=== PATIENT | male | born 1955 | race Caucasian/White ===

== ENCOUNTER 2025-01-22 12:23 | Inpatient (IN) | payer MEDICARE ==
[2025-01-22 14:24] LABS: #Basophils Less than 0.03 10x3/uL (0.0-0.2); #Eosinophils Less than 0.03 10x3/uL (0.0-0.5); #Monocytes 0.66 10x3/uL (0.0-1.1); #Neutrophils 7.12 10x3/uL (1.5-8.4); %Basophils 0.2 % (0.0-2.0); %Eosinophils 0.2 % (0.0-6.0); %Lymphocytes 22.9 % (18.0-47.0); %Monocytes 6.5 % (0.0-10.0); %Neutrophils 70.0 % (40.0-75.0); Hematocrit 42.5 % (38.8-50.0); Hemoglobin 14.3 g/dL (13.5-17.5); Mean Corpuscular Hemoglobin 32.3 pg (27.0-33.0); Mean Corpuscular Volume 95.9 fL (81.2-95.1); Platelet Count 258 10x3/uL (150-450); Red Blood Cell (RBC) Count 4.43 10x6/uL (4.32-5.72); White Blood Cell (WBC) Count 10.17 10x3/uL (3.5-10.5)
[2025-01-22 14:39] LABS: INR-International Normal Ratio 1.0; PTT 24.5 sec (22.0-33.0); Prothrombin Time 10.6 sec (9.5-12.1)
[2025-01-22 14:43] LABS: ALT (SGPT) 14 U/L (Less than 45); AST (SGOT) 21 U/L (11-34); Albumin 4.4 g/dL (3.1-4.5); Alkaline Phosphatase 93 U/L (40-110); Anion Gap 13 mmol/L (10-20); BUN (Urea Nitrogen) 46 mg/dL (8.4-25.7); Bilirubin, Total 0.4 mg/dL (0.3-1.2); Calc. Creatinine Clearance 0 mL/min (70-130); Calcium 8.8 mg/dL (7.8-10.44); Carbon Dioxide 28 mmol/L (23-31); Chloride 102 mmol/L (98-107); Globulin 3.6 g/dL (2.4-3.5); Glucose 88 mg/dL (80-115); Lipase 48 U/L (8-78); Potassium 4.3 mmol/L (3.5-5.1); Sodium 139 mmol/L (136-145)
[2025-01-22 14:46] LABS: Troponin I 0.021 ng/mL (< 0.028)
[2025-01-22 14:58] LABS: Glucose, Urine (Dipstick) Normal (Negative); Leukocyte Negative (Negative); Protein, Urine (Dipstick) 30 mg/dl (Neg-Trace); Specific Gravity, Urine 1.025 (1.005-1.030)
[2025-01-22 15:29] LABS: Bacteria/HPF None Seen HPF (None Seen); CAUTI Indications for Culture Alt mental st,lethar; RBC/HPF 0-3 HPF (0-3); Urine Culture Reflex No No; WBC/HPF 0-3 HPF (0-3)
[2025-01-22] MEDS ORDERED: Ondansetron PF 4 MG/2 ML Vial IVP PRN (17:16)
[2025-01-22] MEDS ORDERED: Senokot S 8.6-50 MG TAB PO PRN (17:28)
[2025-01-22] MEDS ORDERED: Melatonin 3 MG TAB PO PRN (17:28)
[2025-01-22 19:49] LABS: Osmolality, Serum 302 mOsm/kg (280-301)
[2025-01-22 20:02] LABS: Troponin I 0.021 ng/mL (< 0.028)
[2025-01-22 20:10] VITALS: BMI 26.6
[2025-01-22 22:01] LABS: Troponin I 0.019 ng/mL (< 0.028)
[2025-01-22 22:47] LABS: Osmolality, Urine 538 mOsm/kg (50-1200)
[2025-01-23 05:09] LABS: #Basophils 0.04 10x3/uL (0.0-0.2); #Eosinophils 0.13 10x3/uL (0.0-0.5); #Monocytes 0.50 10x3/uL (0.0-1.1); #Neutrophils 3.53 10x3/uL (1.5-8.4); %Basophils 0.6 % (0.0-2.0); %Eosinophils 1.9 % (0.0-6.0); %Lymphocytes 40.0 % (18.0-47.0); %Monocytes 7.1 % (0.0-10.0); %Neutrophils 50.3 % (40.0-75.0); Hematocrit 36.9 % (38.8-50.0); Hemoglobin 12.4 g/dL (13.5-17.5); Mean Corpuscular Hemoglobin 32.1 pg (27.0-33.0); Mean Corpuscular Volume 95.6 fL (81.2-95.1); Platelet Count 235 10x3/uL (150-450); Red Blood Cell (RBC) Count 3.86 10x6/uL (4.32-5.72); White Blood Cell (WBC) Count 7.02 10x3/uL (3.5-10.5)
[2025-01-23 05:25] LABS: Anion Gap 13 mmol/L (10-20); BUN (Urea Nitrogen) 35 mg/dL (8.4-25.7); Calc. Creatinine Clearance 52 mL/min (70-130); Calcium 7.5 mg/dL (7.8-10.44); Carbon Dioxide 23 mmol/L (23-31); Chloride 110 mmol/L (98-107); Glucose 124 mg/dL (80-115); Potassium 4.5 mmol/L (3.5-5.1); Sodium 141 mmol/L (136-145)
[2025-01-23] MEDS: Aspirin Chewable 81 MG TAB PO SCH (09:59)
[2025-01-23] MEDS: Pantoprazole 40 MG DR.TAB PO SCH (09:59)
[2025-01-24 05:23] LABS: #Basophils 0.03 10x3/uL (0.0-0.2); #Eosinophils 0.13 10x3/uL (0.0-0.5); #Monocytes 0.57 10x3/uL (0.0-1.1); #Neutrophils 4.13 10x3/uL (1.5-8.4); %Basophils 0.4 % (0.0-2.0); %Eosinophils 1.8 % (0.0-6.0); %Lymphocytes 34.4 % (18.0-47.0); %Monocytes 7.7 % (0.0-10.0); %Neutrophils 55.6 % (40.0-75.0); Hematocrit 35.6 % (38.8-50.0); Hemoglobin 11.9 g/dL (13.5-17.5); Mean Corpuscular Hemoglobin 32.2 pg (27.0-33.0); Mean Corpuscular Volume 96.2 fL (81.2-95.1); Platelet Count 210 10x3/uL (150-450); Red Blood Cell (RBC) Count 3.70 10x6/uL (4.32-5.72); White Blood Cell (WBC) Count 7.42 10x3/uL (3.5-10.5)
[2025-01-24 05:42] LABS: Anion Gap 11 mmol/L (10-20); BUN (Urea Nitrogen) 18 mg/dL (8.4-25.7); Calc. Creatinine Clearance 75 mL/min (70-130); Calcium 7.5 mg/dL (7.8-10.44); Carbon Dioxide 22 mmol/L (23-31); Chloride 113 mmol/L (98-107); Glucose 108 mg/dL (80-115); Potassium 4.8 mmol/L (3.5-5.1); Sodium 141 mmol/L (136-145)
[2025-01-24] MEDS: Acetaminophen 325 MG TAB PO PRN (08:45)
[2025-01-24] MEDS ORDERED: Iopamidol 370 76% 100 ML VIAL ONE (15:36)
[2025-01-24] MEDS: Lisinopril 20 MG TAB PO SCH (20:20)
[2025-01-25 05:40] LABS: #Basophils 0.04 10x3/uL (0.0-0.2); #Eosinophils 0.11 10x3/uL (0.0-0.5); #Monocytes 0.49 10x3/uL (0.0-1.1); #Neutrophils 3.93 10x3/uL (1.5-8.4); %Basophils 0.6 % (0.0-2.0); %Eosinophils 1.6 % (0.0-6.0); %Lymphocytes 35.0 % (18.0-47.0); %Monocytes 7.0 % (0.0-10.0); %Neutrophils 55.7 % (40.0-75.0); Hematocrit 35.0 % (38.8-50.0); Hemoglobin 12.0 g/dL (13.5-17.5); Mean Corpuscular Hemoglobin 32.0 pg (27.0-33.0); Mean Corpuscular Volume 93.3 fL (81.2-95.1); Platelet Count 226 10x3/uL (150-450); Red Blood Cell (RBC) Count 3.75 10x6/uL (4.32-5.72); White Blood Cell (WBC) Count 7.05 10x3/uL (3.5-10.5)
[2025-01-25 05:59] LABS: Anion Gap 10 mmol/L (10-20); BUN (Urea Nitrogen) 15 mg/dL (8.4-25.7); Calc. Creatinine Clearance 77 mL/min (70-130); Calcium 7.7 mg/dL (7.8-10.44); Carbon Dioxide 21 mmol/L (23-31); Chloride 112 mmol/L (98-107); Glucose 97 mg/dL (80-115); Potassium 4.5 mmol/L (3.5-5.1); Sodium 138 mmol/L (136-145)
[2025-01-25 12:31] LABS: Glucose, Urine (Dipstick) Negative (Negative); Leukocyte Negative (Negative); Protein, Urine (Dipstick) Negative (Neg-Trace); Specific Gravity, Urine Less/Equal 1.005 (1.005-1.030)
[2025-01-25 12:40] VITALS: BP 143/79; TEMP 97.1
[2025-01-25 12:56] LABS: RBC/HPF None Seen HPF (0-3)
[2025-01-25 12:57] LABS: Bacteria/HPF None Seen HPF (None Seen); CAUTI Indications for Culture Pelvic or flank pain; WBC/HPF None Seen HPF (0-3)
[2025-01-25 12:58] LABS: Urine Culture Reflex No No
== END 2025-01-25 13:04 | disposition home or self-care (01) | DRG 641 ==
LOC: CSHERS 12:23 → CSHERHOLD 16:04 → CSHTELE 19:48 → OBSVTOIN 01-23 13:47
PROVIDERS: ADMIT Internal Medicine; ATTEND Internal Medicine
DX: E86.0 Dehydration (principal); N17.9 Acute kidney failure, unspecified; I10 Essential (primary) hypertension; E78.5 Hyperlipidemia, unspecified; K21.9 Gastro-esophageal reflux disease without esophagitis; Z86.73 Personal history of transient ischemic attack (TIA), and cerebral infarction without residual deficits; Z79.899 Other long term (current) drug therapy; Z87.891 Personal history of nicotine dependence; R29.898 Other symptoms and signs involving the musculoskeletal system; I70.203 Unspecified atherosclerosis of native arteries of extremities, bilateral legs
CPT/HCPCS: 36415; 71045; 75635; 76770; 80048; 80053; 81001; 83605; 83690; 83930; 83935; 84300; 84484; 84560; 85025; 85610; 85730; 93005; 93306; 93923; G0378; J0612; J7030; Q9967